=== PATIENT | female | born 1970 | race Two or more races ===

== ENCOUNTER 2023-11-25 07:02 | Emergency (ER) | payer MEDICARE, OTHER ==
[~2023-11-25] VITALS: Ht 165.1 cm; Wt 78.0 kg
[2023-11-25 07:15] VITALS: O2SAT 96
[2023-11-25 11:50] VITALS: BP 148/88; PULSE 98; RESP 20; TEMP 98.7
== END 2023-11-25 12:11 | disposition home or self-care (01) ==
LOC: ER 07:02
DX: F99 Mental disorder, not otherwise specified (principal)
CPT/HCPCS: 99285